=== PATIENT | male | born 1980 | race Caucasian/White ===

== ENCOUNTER 2019-10-21 15:38 | Emergency (ER) | payer BC ==
[~2019-10-21] VITALS: Ht 177.8 cm; Wt 93.4 kg
[2019-10-21 15:51] VITALS: Ht 177.8 cm; Wt 93.4 kg
[2019-10-21 16:36] VITALS: BP 126/82
== END 2019-10-21 16:36 | disposition home or self-care (01) ==
LOC: ED 15:38
DX: T80.89XA Other complications following infusion, transfusion and therapeutic injection, initial encounter (principal); E11.9 Type 2 diabetes mellitus without complications

== ENCOUNTER 2019-10-28 19:17 | Emergency (ER) | payer BC ==
[~2019-10-28] VITALS: Ht 170.2 cm; Wt 90.0 kg
[2019-10-28 19:24] VITALS: Ht 170.2 cm; Wt 90.0 kg
[2019-10-28 20:07] LABS: BASOPHIL % 0.5 % (0-2); CALCIUM 8.6 mg/dL (8.5-10.1); CARBON DIOXIDE 16.6 mmol/L (21-32); CREATININE SERUM 1.5 mg/dL (0.7-1.3); PLATELET COUNT 211 x10^3mcL (130-400); POTASSIUM SERUM 3.8 mmol/L (3.5-5.1)
[2019-10-28 20:11] LABS: ALBUMIN 3.7 g/dL (3.4-5.0); BILIRUBIN TOTAL 0.6 mg/dL (0.20-1.00); MAGNESIUM 1.7 mg/dL (1.8-2.4); PHOSPHOROUS 3.6 mg/dL (2.5-4.9); TOTAL PROTEIN, SERUM 7.7 g/dL (6.4-8.2)
[2019-10-28 20:25] LABS: T3 TOTAL 0.56 ng/mL
[2019-10-28 20:49] LABS: FREE T4 0.9 ng/dL (0.76-1.46)
[2019-10-28 20:50] LABS: FREE THYROXINE INDEX 1.7 ug/dL (1.4-4.5); T4(THYROXINE) 4.6 ug/dL (4.7-13.3)
[2019-10-28 21:15] LABS: UA SPECIFIC GRAVITY >=1.030 (1.005-1.035); microscopic required? YES; urine erythrocyte NEGATIVE (NEGATIVE)
[2019-10-28 22:54] VITALS: BP 113/64
== END 2019-10-28 22:54 | disposition home or self-care (01) ==
LOC: ED 19:17
PROVIDERS: Emergency Medicine
DX: R53.1 Weakness (principal); E83.42 Hypomagnesemia; J45.909 Unspecified asthma, uncomplicated; E11.9 Type 2 diabetes mellitus without complications
CPT/HCPCS: 84439; J2405; Q0092